=== PATIENT | male | born 1985 | race Caucasian/White ===

== ENCOUNTER 2020-08-20 18:20 | Emergency (ER) | payer MEDICAID ==
[~2020-08-20] VITALS: Ht 190.5 cm; Wt 100.0 kg
[2020-08-20 18:23] VITALS: BP 137/90
[2020-08-20 19:19] LABS: BASOPHILS % (AUTO) 0.5 % (0-1); EOSINOPHILS % (AUTO) 0.5 % (0-6); HEMATOCRIT 46.6 % (42.0-52.0); HEMOGLOBIN 16.2 g/dl (14.0-17.9); LYMPHOCYTES # (AUTO) 1.4 X10'3 (1.1-4.8); MEAN CORPUSCULAR HEMOGLOBIN 31.3 PG (27.0-31.0); MEAN CORPUSCULAR HGB CONC 34.7 g/dL (33.0-36.5); MEAN CORPUSCULAR VOLUME 90.3 FL (78-98); MEAN PLATELET VOLUME 7.3 FL (7.4-10.4); MONOCYTES # (AUTO) 1.9 X10'3 (0-0.9); MONOCYTES % (AUTO) 26.3 % (2-12); NEUTROPHILS # (AUTO) 3.8 X10'3 (1.8-7.7); NEUTROPHILS % (AUTO) 53.7 % (42-75); PLATELET COUNT 299 X10'3 (140-440); RED BLOOD COUNT 5.16 X10'6 (4.70-6.10); RED CELL DISTRIBUTION WIDTH 14.3 % (11.5-14.5); WHITE BLOOD COUNT 7.2 X10'3 (4.5-11.0)
[2020-08-20] MEDS ORDERED: ONDA4TAB6 PO (19:23)
[2020-08-20 19:34] LABS: ALANINE AMINOTRANSFERASE 16 U/L (12-78); ALBUMIN 4.3 G/DL (3.4-5.0); ALBUMIN/GLOBULIN RATIO 0.9 (1.1-1.5); ALKALINE PHOSPHATASE 45 IU/L (46-116); ANION GAP 8 (8-16); ASPARTATE AMINO TRANSFERASE 10 U/L (10-37); BILIRUBIN,TOTAL 0.4 MG/DL (0.1-1.0); BLOOD UREA NITROGEN 29 MG/DL (7-18); BUN/CREATININE RATIO 19.5 (5.4-32.0); CALCIUM 9.6 MG/DL (8.5-10.1); CHLORIDE 95 MMOL/L (99-107); CREATININE 1.49 MG/DL (0.60-1.10); GLUCOSE 98 MG/DL (70-104); LIPASE 338 U/L (73-393); POTASSIUM 3.5 MMOL/L (3.5-5.1); SODIUM 132 MMOL/L (135-145); TOTAL CARBON DIOXIDE 29.5 MMOL/L (24-32); TOTAL PROTEIN 9.2 G/DL (6.4-8.2); eGFR 54 ML/MIN
[2020-08-20 20:01] LABS: PLATELET ESTIMATE NORMAL; TOTAL CELLS COUNTED 100
[2020-08-20] MEDS ORDERED: ondansetron 4mg rapidly disintigrating tab PO ONE (20:10)
[2020-08-21 09:05] LABS: BANDS% (MANUAL) 4 % (0-10); LYMPHOCYTES % (MANUAL) 21 % (21-51); NEUTROPHILS % (MANUAL) 48 % (42-75)
[2020-08-21 09:06] LABS: MONOCYTES % (MANUAL) 26 % (2-12)
== END 2020-08-20 21:00 | disposition home or self-care (01) ==
LOC: ER 18:20
DX: B34.9 Viral infection, unspecified (principal); R11.2 Nausea with vomiting, unspecified; E86.0 Dehydration; R10.84 Generalized abdominal pain; R09.89 Other specified symptoms and signs involving the circulatory and respiratory systems; J45.909 Unspecified asthma, uncomplicated; Z03.818 Encounter for observation for suspected exposure to other biological agents ruled out; Z79.899 Other long term (current) drug therapy
CPT/HCPCS: 36415; 80053; 83690; 85007; 85025; 87635; 99283